=== PATIENT | male | born 1990 | race African-American/Black ===

== ENCOUNTER 2016-08-19 20:33 | Emergency (ER) | payer OTHER ==
[~2016-08-19 20:33] MED LIST: AUGMENTIN PO; CONCERTA; KETOPROFEN PO; PEN-VEE K PO; SEROQUEL PO; TRAZODONE PO; VICODIN 5/1 TAB 5/50 PO
[2016-08-19 22:57] LABS: BASOPHIL% 0.3 % (0-2.5); EOSINOPHIL% 0.5 % (0.0-7.0); HEMATOCRIT 48.9 % (38.0-50.0); HEMOGLOBIN 16.1 gm/dL (13.0-16.0); LYMPHOCYTE# 1.1 X10e3 (1.0-3.5); LYMPHOCYTE% 15.2 % (17.0-45.0); MEAN CELL VOLUME 81.8 FL (83-96); MEAN CORPUSCULAR HEMOGLOBIN 26.9 PG (28-34); MEAN CORPUSCULAR HGB CONC 32.9 g/dL (30-36); MEAN PLATELET VOLUME 8.5 FL (6.5-11.5); MONOCYTE# 0.6 X10e3 (0-1.0); MONOCYTE% 8.2 % (3.0-12.0); NEUTROPHIL# 5.4 X10e3 (1.5-7.1); NEUTROPHIL% 75.8 % (40-75); PLATELET COUNT 286 X10e3 (140-420); RED BLOOD COUNT 5.98 X10e (3.90-5.60); RED CELL DISTRIBUTION WIDTH 13.6 % (11.0-15.5); WHITE BLOOD COUNT 7.1 X10e3 (4.0-10.5)
[2016-08-19 22:59] LABS: DIFF IND NO
[2016-08-19 23:40] LABS: ALBUMIN SERUM 4.7 g/dL (3.5-5.0); BILIRUBIN, DIRECT 0.1 mg/dL (0.0-0.2); BILIRUBIN,INDIRECT 0.5 mg/dL (0.0-0.9); BILIRUBIN,TOTAL 0.6 mg/dL (0.2-2.0); BUN/CREATININE RATIO 11.11; CALCIUM SERUM 9.1 mg/dL (8.4-10.2); CREATININE SERUM 0.9 mg/dL (0.6-1.4); POTASSIUM 4.1 mmol/L (3.5-5.1); PROTEIN TOTAL SERUM 7.4 g/dL (6.0-8.3)
== END 2016-08-19 23:54 | disposition home or self-care (01) ==
LOC: CED 20:33 → CFTX 20:33
PROVIDERS: Nurse Practitioner Family
DX: R19.5 Other fecal abnormalities (principal); F17.210 Nicotine dependence, cigarettes, uncomplicated
CPT/HCPCS: 80048; 80076; 85025; 99282

== ENCOUNTER 2016-12-09 23:47 | Emergency (ER) | payer OTHER ==
[~2016-12-09] VITALS: Ht 180.3 cm; Wt 61.2 kg
== END 2016-12-10 00:55 | disposition home or self-care (01) ==
LOC: CFTX 23:47 → CED 23:47 → CFTX 23:55
DX: B07.9 Viral wart, unspecified (principal); F17.210 Nicotine dependence, cigarettes, uncomplicated
CPT/HCPCS: 99283